=== PATIENT | female | born 1940 | race Caucasian/White ===

== ENCOUNTER 2018-10-21 12:54 | Observation (INO) ==
[2018-10-21 13:06] VITALS: BMI 20.5
[2018-10-21 13:15] LABS: BASOPHILS # (AUTO) 0.1 X10^3/uL (0.0-0.1); BASOPHILS % (AUTO) 1.4 % (0.2-1.0); EOSINOPHILS # (AUTO) 0.3 x10^3/uL (0.0-0.2); EOSINOPHILS % (AUTO) 4.8 % (0.9-2.9); HEMATOCRIT 35.8 % (36.0-47.0); LYMPHOCYTES # (AUTO) 3.3 X10^3/uL (1.3-2.9); LYMPHOCYTES % (AUTO) 53.3 % (21.0-51.0); MEAN CORPUSCULAR HEMOGLOBIN 30.2 pg (27.0-34.0); MEAN CORPUSCULAR HGB CONC 33.5 g/dL (33.0-35.0); MEAN PLATELET VOLUME 9.7 fL (7.4-11.0); MONOCYTES # (AUTO) 0.5 x10^3/uL (0.3-0.8); MONOCYTES % (AUTO) 7.8 % (0.0-13.0); NEUTROPHILS % (AUTO) 32.7 % (42.0-75.0); PLATELET COUNT 307 X10^3/uL (150.0-450.0); RED BLOOD COUNT 3.98 X10^6/uL (3.5-5.4); RED CELL DISTRIBUTION WIDTH 13.7 % (11.6-16.5); WHITE BLOOD COUNT 6.2 X10^3/uL (3.6-10.0)
[2018-10-21 13:35] LABS: BLOOD UREA NITROGEN 28 mg/dL (7-18); CALCIUM 9.3 mg/dL (8.5-10.1); CARBON DIOXIDE 26.1 mmol/L (21-32); CHLORIDE 104 mmol/L (98-107); COR NA(FOR HYPERGLY) 141 mmol/L (136-145); CREATININE 1.37 mg/dL (0.55-1.02); SODIUM 141 mmol/L (136-145); TROPONIN I < 0.02 ng/mL (0-1.5); eGFR NON BLACK RACES 40 (>60)
[2018-10-21 13:36] LABS: ALANINE AMINOTRANSFERASE 31 Units/L (12-78); ALBUMIN 3.9 g/dL (3.4-5.0); ALKALINE PHOSPHATASE 40 Units/L (46-116); ASPARTATE AMINO TRANSFERASE 38 Units/L (15-37); CREATINE KINASE 98 Units/L (26-192); CREATINE KINASE MB < 1.0 ng/mL (0-4.0); TOTAL PROTEIN 7.5 g/dL (6.4-8.2)
--- NOTE | 2018-10-21 13:39 | RAD ---
History: Syncope and shortness of breath Study: Portable AP chest Comparison: July 14, 2016 Findings: The lungs are grossly clear and the heart size is normal. There is no edema or effusion or congestion. Impression: No evidence for acute cardiopulmonary disease Reported By:
--- NOTE | 2018-10-21 13:41 | CT ---
CT HEAD WITHOUT CONTRAST CLINICAL HISTORY: 78-year-old female with syncopal episode. COMPARISON: CT head 07/14/2016. TECHNIQUE: Multiple, non-contrasted axial CT images were obtained from the skull base to the cranial vertex. Coronal and sagittal reformats were performed. FINDINGS: There are no abnormal intra- or extra-axial fluid collections, midline shift, or mass effect. Guerra-white differentiation is normal. Global cortical involutional changes are present that are advanced for the patient's stated age. The ventricular system is enlarged but commensurate with the degree of sulcal prominence. Severe periventricular and supraventricular white matter hypodensity is present that is nonspecific in appearance, but most likely to represent microvascular ischemic changes. Atherosclerotic vascular calcification is present within the carotid siphons and distal vertebral arteries. Trace mucosal thickening imaged maxillary sinuses. The remaining imaged paranasal sinuses, mastoid air cells, and tympanic spaces are clear. IMPRESSION: 1. No definite evidence of an acute intracranial process. If clinical concern persists for acute stroke and it would alter patient management, consider MRI/MRA brain. 2. Severe microvascular white matter ischemic changes, with associated volume loss. Reported By:
--- NOTE | 2018-10-21 13:52 | DR.DIZZY ---
HPI Time seen Time Seen by Provider: 10/21/18 13:16 Complaint Chief Complaint:: PATIENT WAS AT THE POST OFFICE AND CAME IN FROM THE HEAT AND FELT LIKE SHE WAS GOING PASS OUT BUT NEVER ANY LOC. PATIENT STATED THAT SHE JUST THINKS SHE GOT TO HOT FROM BEING OUTSIDE. SHE ALSO STATED THAT HER HEAD FEELS F UNNY. 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 Family History History of Family Medical Conditions: No Social History Does patient currently use any type of tobacco product: No Have you used tobacco products in the last 12 months: No Type of Tobacco Use: None Does any household member use tobacco: No Alcohol Use: None Do you use any recreational Drugs:: No Lives With: Spouse Lives Where: Home infectious screening In the last 2 months have you had wt loss of >10#?: NO Have you had fever, night sweats or hemotysis?: No Have you traveled outside the country in the last 6 months?: No Isolation: Standard PE Vital Signs Vitals: Temperature 98.2 F Pulse Rate [Left Brachial] 61 Pulse Rate 74 Respiratory Rate 20 Blood Pressure [Right Arm] 108/54 Blood Pressure [Left Arm] 103/51 Blood Pressure 94/61 O2 Sat by Pulse Oximetry 99 ROR Labs Reviewed Result Diagrams: 10/21/18 12:57 10/21/18 12:57 Laboratory: WBC 6.2 X10^3/uL (3.6-10.0) 10/21/18 12:57 RBC 3.98 X10^6/uL (3.5-5.4) 10/21/18 12:57 Hgb 12.0 g/dL (12.0-16.0) 10/21/18 12:57 Hct 35.8 % (36.0-47.0) L 10/21/18 12:57 MCV 90.0 fL (80.0-100.0) 10/21/18 12:57 MCH 30.2 pg (27.0-34.0) 10/21/18 12:57 MCHC 33.5 g/dL (33.0-35.0) 10/21/18 12:57 RDW 13.7 % (11.6-16.5) 10/21/18 12:57 Plt Count 307 X10^3/uL (150.0-450.0) 10/21/18 12:57 MPV 9.7 fL (7.4-11.0) 10/21/18 12:57 Neut % (Auto) 32.7 % (42.0-75.0) L 10/21/18 12:57 Lymph % (Auto) 53.3 % (21.0-51.0) H 10/21/18 12:57 Hanson % (Auto) 7.8 % (0.0-13.0) 10/21/18 12:57 Eos % (Auto) 4.8 % (0.9-2.9) H 10/21/18 12:57 Baso % (Auto) 1.4 % (0.2-1.0) H 10/21/18 12:57 Neut # (Auto) 2.0 x10^3/uL (2.2-4.8) L 10/21/18 12:57 Lymph # (Auto) 3.3 X10^3/uL (1.3-2.9) H 10/21/18 12:57 Hanson # (Auto) 0.5 x10^3/uL (0.3-0.8) 10/21/18 12:57 Eos # (Auto) 0.3 x10^3/uL (0.0-0.2) H 10/21/18 12:57 Baso # (Auto) 0.1 X10^3/uL (0.0-0.1) 10/21/18 12:57 Absolute Nucleated RBC 0.1 /100WBC 10/21/18 12:57 Sodium 141 mmol/L (136-145) 10/21/18 12:57 Corrected Sodium 141 mmol/L (136-145) 10/21/18 12:57 Potassium 4.5 mmol/L (3.5-5.1) 10/21/18 12:57 Chloride 104 mmol/L (98-107) 10/21/18 12:57 Carbon Dioxide 26.1 mmol/L (21-32) 10/21/18 12:57 BUN 28 mg/dL (7-18) H 10/21/18 12:57 Creatinine 1.37 mg/dL (0.55-1.02) H 10/21/18 12:57 Est GFR (MDRD) Af Amer 48 (>60) L 10/21/18 12:57 Est GFR (MDRD) Non-Af 40 (>60) L 10/21/18 12:57 Glucose 117 mg/dL (65-99) H 10/21/18 12:57 Calcium 9.3 mg/dL (8.5-10.1) 10/21/18 12:57 Corrected Calcium TNP 10/21/18 12:57 Total Bilirubin 0.30 mg/dL (0.2-1.0) 10/21/18 12:57 AST 38 Units/L (15-37) H 10/21/18 12:57 ALT 31 Units/L (12-78) 10/21/18 12:57 Alkaline Phosphatase 40 Units/L (46-116) L 10/21/18 12:57 Creatine Kinase 98 Units/L (26-192) 10/21/18 12:57 CK-MB (CK-2) < 1.0 ng/mL (0-4.0) 10/21/18 12:57 CK/CKMB % Calc 1.0 % (<4) 10/21/18 12:57 Troponin I < 0.02 ng/mL (0-1.5) 10/21/18 12:57 Total Protein 7.5 g/dL (6.4-8.2) 10/21/18 12:57 Albumin 3.9 g/dL (3.4-5.0) 10/21/18 12:57 Globulin 3.6 g/dL (2.5-4.5) 10/21/18 12:57 Albumin/Globulin Ratio 1.1 Ratio (1.1-2.1) 10/21/18 12:57
[2018-10-21] MEDS ORDERED: ANTIVERT TAB 25 MG PO PRN (16:23)
[2018-10-21] MEDS: NS 1000 ML 1,000 ML IV SCH (17:15)
[2018-10-21 18:32] LABS: BILIRUBIN,URINE NEGATIVE (NEGATIVE); BLOOD/HEMOGLOBIN,URINE 1+ (NEGATIVE); GLUCOSE, URINE NEGATIVE (NEGATIVE); KETONES,URINE NEGATIVE (NEGATIVE); LEUKOCYTE ESTERASE ,URINE NEGATIVE (NEGATIVE); NITRITES,URINE NEGATIVE (NEGATIVE); PH,URINE 6.5 (5.0 - 8.0); PROTEIN,URINE NEGATIVE (NEGATIVE); UROBILINOGEN,URINE NORMAL (NORMAL)
[2018-10-21 18:40] LABS: APPEARANCE,URINE CLEAR (CLEAR); COLOR,URINE YELLOW (YELLOW); RBC,URINE 0-2 /HPF (NONE SEEN)
[2018-10-21 18:41] LABS: BACTERIA,URINE NEGATIVE /HPF (NEGATIVE); SQUAMOUS EPITHELIAL CELL,UR NEGATIVE /HPF (NEGATIVE)
[2018-10-21] MEDS ORDERED: COUMADIN TAB 5 MG PO SCH (21:00)
[2018-10-21] MEDS ORDERED: MESTINON 60MG TAB PO SCH (21:00)
[2018-10-21] MEDS: TRICOR TAB 160 MG PO SCH (21:36)
[2018-10-21] MEDS ORDERED: PYRIDOSTIGMINE BROMIDE PO SCH (22:00)
[2018-10-22] LABS: CREATINE KINASE 99 Units/L (26-192); CREATINE KINASE MB < 1.0 ng/mL (0-4.0); TROPONIN I < 0.02 ng/mL (0-1.5)
[2018-10-22 05:09] LABS: BASOPHILS # (AUTO) 0.1 X10^3/uL (0.0-0.1); BASOPHILS % (AUTO) 1.4 % (0.2-1.0); EOSINOPHILS # (AUTO) 0.4 x10^3/uL (0.0-0.2); EOSINOPHILS % (AUTO) 7.2 % (0.9-2.9); HEMATOCRIT 32.4 % (36.0-47.0); HEMOGLOBIN 10.9 g/dL (12.0-16.0); LYMPHOCYTES % (AUTO) 40.4 % (21.0-51.0); MEAN CORPUSCULAR HEMOGLOBIN 30.8 pg (27.0-34.0); MEAN CORPUSCULAR HGB CONC 33.7 g/dL (33.0-35.0); MEAN CORPUSCULAR VOLUME 91.6 fL (80.0-100.0); MEAN PLATELET VOLUME 10.2 fL (7.4-11.0); MONOCYTES # (AUTO) 0.6 x10^3/uL (0.3-0.8); MONOCYTES % (AUTO) 11.3 % (0.0-13.0); NEUTROPHILS % (AUTO) 39.7 % (42.0-75.0); PLATELET COUNT 229 X10^3/uL (150.0-450.0); RED BLOOD COUNT 3.54 X10^6/uL (3.5-5.4); RED CELL DISTRIBUTION WIDTH 13.7 % (11.6-16.5); WHITE BLOOD COUNT 4.9 X10^3/uL (3.6-10.0)
[2018-10-22 05:15] LABS: ALANINE AMINOTRANSFERASE 24 Units/L (12-78); ALBUMIN 3.2 g/dL (3.4-5.0); ALKALINE PHOSPHATASE 31 Units/L (46-116); ASPARTATE AMINO TRANSFERASE 30 Units/L (15-37); BLOOD UREA NITROGEN 23 mg/dL (7-18); CALCIUM 8.7 mg/dL (8.5-10.1); CARBON DIOXIDE 24.3 mmol/L (21-32); CHLORIDE 108 mmol/L (98-107); COR CA(FOR HYPOALB) 9.3 mg/dL (8.5-10.1); CREATININE 1.06 mg/dL (0.55-1.02); MAGNESIUM 1.7 mg/dL (1.7-2.9); SODIUM 143 mmol/L (136-145); TOTAL PROTEIN 6.3 g/dL (6.4-8.2); eGFR NON BLACK RACES 53 (>60)
[2018-10-22 05:23] LABS: CKMB % 1.4 % (<4); CREATINE KINASE 74 Units/L (26-192); CREATINE KINASE MB < 1.0 ng/mL (0-4.0); TROPONIN I < 0.02 ng/mL (0-1.5)
[2018-10-22] MEDS: ZOCOR TAB 40 MG PO SCH (08:21)
[2018-10-22] MEDS: ARICEPT TAB 10 MG PO SCH (08:21)
[2018-10-22] MEDS: OXYBUTYNIN CHLORIDE ER PO SCH (08:22)
[2018-10-22] MEDS: NAMENDA TAB 10 MG PO SCH (08:22)
[2018-10-22] MEDS: PROTONIX TAB 40 MG PO SCH (08:23)
[2018-10-22] MEDS ORDERED: PYRIDOSTIGMINE BROMIDE 180 MG PO SCH (09:00)
[2018-10-22] MEDS ORDERED: MESTINON 60MG TAB PO SCH (09:00)
[2018-10-22] MEDS: ELIQUIS PO SCH ×2 (10:10→20:46)
[2018-10-22] MEDS: NS 1000 ML 1,000 ML IV SCH ×2 (13:20→20:49)
[2018-10-22] MEDS ORDERED: FIORICET TAB PO PRN (14:59)
[2018-10-22] MEDS: PATIENT'S HOME MEDICATION PO SCH ×2 (15:24→23:52)
--- NOTE | 2018-10-22 18:28 | DR.H&P ---
H&P - History & Physical for Day of: H&P Date: 10/21/18 - Chief Complaint Chief Complaint: WEAKNESS, NEAR SYNCOPE - History of Present Illness History of Present Illness: IS A 78 YEAR OLD PATIENT OF OURS WHO PRESENTED TO THE ER AFTER A NEAR SYNCOPAL EPISODE. WITNESSES STATED THAT PATIENT CAME INTO THE POST OFFICE FROM THE HEAT AND FELT LIKE SHE WAS GOINT TO PASS OUT. SHE APPARENTLY NEVER LOST CONSCIOUSNESS. ON ARRIVAL, VITALS WERE 9 8.2-74-20-99%-94/61. LABS WERE OBTAINED. ABNORMAL LAB VALUES INCLUDE THE FOLLOWING: HCT 35.8, INR 5.28, BUN 28, CREATININE 1.37, GLUCOSE 117, AST 38, ALK PHOS 40. CARDIAC ENZYMES WITHIN NORMAL LIMITS. EKG WAS OBTAINED AND REVEALED: SINUS RHYTHM WITH HR 78. BRAIN CT WAS OBTAINED AND REVEALED: No definite evidence of an acute intracranial process. If clinical concern persists for acute stroke and it would alter patient management, consider MRI/MRA brain. Severe microvascular white matter ischemic changes, with associated volume loss. CHEST XRAY WAS OBTAINED AND REVEALED: No evidence for acute cardiopulmonary disease. SHE WAS ADMITTED TO THE HOSPITAL FOR FURTHER EVALUATION AND TREATMENT OF NEAR SYNCOPE AND WEAKNESS. SHE WAS STARTED ON NORMAL SALINE AT 50ML/HR. WE PLAN TO FOLLOW UP WITH AM LABS AND CONTINUE TO MONITOR. - Past Medical History Past Medical History: Dementia, Arthritis - Past Surgical History Surgical History: KILN TESTER Surgery - Social History Does patient currently use any type of tobacco product: No Have you used tobacco products in the last 12 months: No Type of Tobacco Use: None Does any household member use tobacco: No Alcohol Use: None Drug Use: None - Medications Home Medications: butorphanol [From Stadol] Allergy (Verified 10/21/18 19:41) CONTINUE taking the following medications donepezil 20 mg PO HS 10/21/18 [History] fluticasone propionate 1 spray INTRANASAL DAILY PRN 10/21/18 [History] meclizine 25 mg PO PRN PRN 10/21/18 [History] memantine 10 mg PO BID 10/21/18 [History] oxybutynin chloride 15 mg PO DAILY 10/21/18 [History] pantoprazole 40 mg PO DAILY 10/21/18 [History] pyridostigmine bromide 60 mg PO TID 10/21/18 [History] pyridostigmine bromide 180 mg PO HS 10/21/18 [History] simvastatin 40 mg PO HS 10/21/18 [History] warfarin 5 mg PO HS 10/21/18 [History] [id number] [Fioricet] 1 tab PO Q4-6H PRN 10/22/18 [History] - Review of Systems Constitutional: Weakness Eyes: No Symptoms Reported ENT: No Symptoms Reported Respiratory: No Symptoms Reported Cardiovascular: No Symptoms Reported Gastrointestinal: No Symptoms Reported Genitourinary: No Symptoms Reported Musculoskeletal: No Symptoms Reported Skin: No Symptoms Reported Neurological: Weakness - Physical Exam Vital Signs: Temperature 97.7 F Pulse Rate [Left Brachial] 73 Pulse Rate 74 Respiratory Rate 20 Blood Pressure [Right Arm] 112/62 Blood Pressure [Left Arm] 109/53 Blood Pressure 94/61 O2 Sat by Pulse Oximetry 96 Oriented: Normal Eyes: Normal Ear: Normal Nose: Normal Throat: Normal Respiratory: Diminished Throughout Cardiovascular: Normal. negative: S3, S4, Murmur : Normal Auscultation: Bowel Sounds: Normal Palpation: Normal Tenderness: Normal Skin: Normal Musculoskeletal: Normal Psychiatric: Normal Mood Description: Calm Affect: Normal Speech Pattern: Clear - Assessment/Plan (1) Near syncope Status: Ruled-out (2) Generalized weakness Status: Acute - Allergies Allergies/Adverse Reactions: Allergies Allergy/AdvReac Type Severity Reaction Status Date / Time butorphanol [From Stadol] Allergy Verified 10/21/18 19:41
[2018-10-22] MEDS: TRICOR TAB 160 MG PO SCH (20:46)
[2018-10-22] MEDS ORDERED: PATIENT'S HOME MEDICATION PO SCH (21:00)
[2018-10-23] MEDS: PATIENT'S HOME MEDICATION PO SCH (05:16)
[2018-10-23 05:29] LABS: BASOPHILS % (AUTO) 0.9 % (0.2-1.0); EOSINOPHILS # (AUTO) 0.4 x10^3/uL (0.0-0.2); EOSINOPHILS % (AUTO) 7.4 % (0.9-2.9); HEMOGLOBIN 11.2 g/dL (12.0-16.0); LYMPHOCYTES # (AUTO) 1.8 X10^3/uL (1.3-2.9); LYMPHOCYTES % (AUTO) 38.2 % (21.0-51.0); MEAN CORPUSCULAR HGB CONC 33.8 g/dL (33.0-35.0); MEAN CORPUSCULAR VOLUME 91.7 fL (80.0-100.0); MEAN PLATELET VOLUME 10.5 fL (7.4-11.0); MONOCYTES # (AUTO) 0.5 x10^3/uL (0.3-0.8); MONOCYTES % (AUTO) 10.6 % (0.0-13.0); NEUTROPHILS # (AUTO) 2.1 x10^3/uL (2.2-4.8); NEUTROPHILS % (AUTO) 42.9 % (42.0-75.0); PLATELET COUNT 217 X10^3/uL (150.0-450.0); RED BLOOD COUNT 3.59 X10^6/uL (3.5-5.4); RED CELL DISTRIBUTION WIDTH 13.9 % (11.6-16.5); WHITE BLOOD COUNT 4.8 X10^3/uL (3.6-10.0)
[2018-10-23 05:41] LABS: ALANINE AMINOTRANSFERASE 23 Units/L (12-78); ALBUMIN 3.2 g/dL (3.4-5.0); ALKALINE PHOSPHATASE 31 Units/L (46-116); ASPARTATE AMINO TRANSFERASE 29 Units/L (15-37); BLOOD UREA NITROGEN 26 mg/dL (7-18); CALCIUM 8.8 mg/dL (8.5-10.1); CARBON DIOXIDE 24.9 mmol/L (21-32); CHLORIDE 109 mmol/L (98-107); COR CA(FOR HYPOALB) 9.4 mg/dL (8.5-10.1); CREATININE 1.06 mg/dL (0.55-1.02); SODIUM 143 mmol/L (136-145); TOTAL PROTEIN 6.3 g/dL (6.4-8.2); eGFR NON BLACK RACES 53 (>60)
[2018-10-23] MEDS: OXYBUTYNIN CHLORIDE ER PO SCH (08:33)
[2018-10-23] MEDS: NAMENDA TAB 10 MG PO SCH (08:33)
[2018-10-23] MEDS: ARICEPT TAB 10 MG PO SCH (08:33)
[2018-10-23] MEDS: ZOCOR TAB 40 MG PO SCH ×2 (08:34→08:53)
[2018-10-23] MEDS: PROTONIX TAB 40 MG PO SCH (08:34)
[2018-10-23] MEDS: NS 1000 ML 1,000 ML IV SCH (08:34)
[2018-10-23 08:47] VITALS: BP 100/46
== END 2018-10-23 10:15 | disposition home or self-care (01) ==
LOC: MED/SURG 12:54 → ER 12:54 → MED/SURG 16:15
PROVIDERS: ADMIT Internal Medicine; ATTEND Internal Medicine
DX: R53.1 Weakness; R79.1 Abnormal coagulation profile; R94.4 Abnormal results of kidney function studies; R55 Syncope and collapse; Z79.01 Long term (current) use of anticoagulants
CPT/HCPCS: 36415; 70450; 71010; 71045; 80053; 81001; 82550; 82553; 83735; 84484; 85025; 85610; 85730; 93005; 94760; 96365; 96367; 99284; A4222; G0378; J7030

== ENCOUNTER 2019-05-07 12:10 | Inpatient (IN) ==
[2019-05-07] MEDS ORDERED: NUBAIN INJ 10 ONE (13:06)
[2019-05-07] MEDS ORDERED: NUBAIN INJ 10 IVP ONE (13:15)
--- NOTE | 2019-05-07 13:15 | ED.ABDFE ---
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 Family History History of Family Medical Conditions: Yes Social History Does patient currently use any type of tobacco product: No Have you used tobacco products in the last 12 months: No Type of Tobacco Use: None Does any household member use tobacco: No Alcohol Use: None Do you use any recreational Drugs:: No Lives With: Family Lives Where: Home infectious screening In the last 2 months have you had wt loss of >10#?: YES Have you had fever, night sweats or hemotysis?: No Have you traveled outside the country in the last 6 months?: No Isolation: Standard PE Vital Signs Vitals: Temperature 97.2 F Pulse Rate 59 Respiratory Rate 20 Blood Pressure [Right Arm] 112/62 Blood Pressure [Left Arm] 134/61 Blood Pressure 142/80 O2 Sat by Pulse Oximetry 100 ROR Labs Reviewed Result Diagrams: 05/07/19 13:00 05/07/19 13:00 Laboratory: WBC 9.6 X10^3/uL (3.6-10.0) 05/07/19 13:00 RBC 4.63 X10^6/uL (3.5-5.4) 05/07/19 13:00 Hgb 14.4 g/dL (12.0-16.0) 05/07/19 13:00 Hct 42.3 % (36.0-47.0) 05/07/19 13:00 MCV 91.3 fL (80.0-100.0) 05/07/19 13:00 MCH 31.0 pg (27.0-34.0) 05/07/19 13:00 MCHC 33.9 g/dL (33.0-35.0) 05/07/19 13:00 RDW 13.5 % (11.6-16.5) 05/07/19 13:00 Plt Count 224 X10^3/uL (150.0-450.0) 05/07/19 13:00 MPV 11.1 fL (7.4-11.0) H 05/07/19 13:00 Neut % (Auto) 54.4 % (42.0-75.0) 05/07/19 13:00 Lymph % (Auto) 36.2 % (21.0-51.0) 05/07/19 13:00 Armstrong % (Auto) 8.3 % (0.0-13.0) 05/07/19 13:00 Eos % (Auto) 0.3 % (0.9-2.9) L 05/07/19 13:00 Baso % (Auto) 0.8 % (0.2-1.0) 05/07/19 13:00 Neut # (Auto) 5.2 x10^3/uL (2.2-4.8) H 05/07/19 13:00 Lymph # (Auto) 3.5 X10^3/uL (1.3-2.9) H 05/07/19 13:00 Armstrong # (Auto) 0.8 x10^3/uL (0.3-0.8) 05/07/19 13:00 Eos # (Auto) 0.0 x10^3/uL (0.0-0.2) 05/07/19 13:00 Baso # (Auto) 0.1 X10^3/uL (0.0-0.1) 05/07/19 13:00 Absolute Nucleated RBC 0.1 /100WBC 05/07/19 13:00 Sodium 138 mmol/L (136-145) 05/07/19 13:00 Sodium Cancelled 05/07/19 13:00 Corrected Sodium Cancelled 05/07/19 13:00 Corrected Sodium TNP 05/07/19 13:00 Potassium 4.3 mmol/L (3.5-5.1) 05/07/19 13:00 Potassium Cancelled 05/07/19 13:00 Chloride 99 mmol/L (98-107) 05/07/19 13:00 Chloride Cancelled 05/07/19 13:00 Carbon Dioxide 31.2 mmol/L (21-32) 05/07/19 13:00 Carbon Dioxide Cancelled 05/07/19 13:00 BUN 24 mg/dL (7-18) H 05/07/19 13:00 BUN Cancelled 05/07/19 13:00 Creatinine 1.03 mg/dL (0.55-1.02) H 05/07/19 13:00 Creatinine Cancelled 05/07/19 13:00 Est GFR (MDRD) Af Amer > 60 (>60) 05/07/19 13:00 Est GFR (MDRD) Af Amer Cancelled 05/07/19 13:00 Est GFR (MDRD) Non-Af 55 (>60) L 05/07/19 13:00 Est GFR (MDRD) Non-Af Cancelled 05/07/19 13:00 Glucose 105 mg/dL (65-99) H 05/07/19 13:00 Glucose Cancelled 05/07/19 13:00 Calcium 9.9 mg/dL (8.5-10.1) 05/07/19 13:00 Calcium Cancelled 05/07/19 13:00 Corrected Calcium Cancelled 05/07/19 13:00 Corrected Calcium TNP 05/07/19 13:00 Total Bilirubin 0.20 mg/dL (0.2-1.0) 05/07/19 13:00 Total Bilirubin Cancelled 05/07/19 13:00 AST 27 Units/L (15-37) 05/07/19 13:00 AST Cancelled 05/07/19 13:00 ALT 30 Units/L (12-78) 05/07/19 13:00 ALT Cancelled 05/07/19 13:00 Alkaline Phosphatase 85 Units/L (46-116) 05/07/19 13:00 Alkaline Phosphatase Cancelled 05/07/19 13:00 Creatine Kinase 54 Units/L (26-192) 05/07/19 13:00 CK-MB (CK-2) < 1.0 ng/mL (0-4.0) 05/07/19 13:00 CK/CKMB % Calc 1.9 % (<4) 05/07/19 13:00 Troponin I < 0.02 ng/mL (0-1.5) 05/07/19 13:00 Total Protein 8.5 g/dL (6.4-8.2) H 05/07/19 13:00 Total Protein Cancelled 05/07/19 13:00 Albumin 4.2 g/dL (3.4-5.0) 05/07/19 13:00 Albumin Cancelled 05/07/19 13:00 Globulin 4.3 g/dL (2.5-4.5) 05/07/19 13:00 Globulin Cancelled 05/07/19 13:00 Albumin/Globulin Ratio 1.0 Ratio (1.1-2.1) L 05/07/19 13:00 Albumin/Globulin Ratio Cancelled 05/07/19 13:00 Amylase 165 Units/L (25-115) H 05/07/19 13:00 Amylase Cancelled 05/07/19 13:00 Lipase 790 Units/L (73-393) H 05/07/19 13:00 Lipase Cancelled 05/07/19 13:00 Specimen Type Clean catch urine 05/07/19 15:35 Urine Color Yellow (YELLOW) 05/07/19 15:35 Urine Appearance Clear (CLEAR) 05/07/19 15:35 Urine pH 7.0 (5.0 - 8.0) 05/07/19 15:35 Ur Specific Wagner 1.010 (1.000-1.030) 05/07/19 15:35 Urine Protein 2+ (NEGATIVE) 05/07/19 15:35 Urine Glucose (UA) Negative (NEGATIVE) 05/07/19 15:35 Urine Ketones Negative (NEGATIVE) 05/07/19 15:35 Urine Occult Blood Negative (NEGATIVE) 05/07/19 15:35 Urine Nitrite Negative (NEGATIVE) 05/07/19 15:35 Urine Bilirubin Negative (NEGATIVE) 05/07/19 15:35 Urine Urobilinogen Normal (NORMAL) 05/07/19 15:35 Ur Leukocyte Esterase 1+ (NEGATIVE) 05/07/19 15:35 Urine RBC 0-2 /HPF (0-3) 05/07/19 15:35 Urine WBC 5-10 /HPF (0-5) A 05/07/19 15:35 Ur Squamous Epith Cells Rare /HPF (NEGATIVE) 05/07/19 15:35 Urine Bacteria Negative /HPF (NEGATIVE) 05/07/19 15:35 Ur Culture Indicated? Yes/culture set up 05/07/19 15:35 Opioid Opioid Risk Tool Age (José Miguel box if 16-45): No History of Preadolescent Sexual Abuse: No Total: 0 Total Score Risk Category: Low Risk Copyright: Jared KELLEY predicting aberrant behaviors Instructions Forms: Excuse From Work Patient Portal
[2019-05-07 13:26] LABS: BASOPHILS # (AUTO) 0.1 X10^3/uL (0.0-0.1); BASOPHILS % (AUTO) 0.8 % (0.2-1.0); EOSINOPHILS % (AUTO) 0.3 % (0.9-2.9); HEMATOCRIT 42.3 % (36.0-47.0); HEMOGLOBIN 14.4 g/dL (12.0-16.0); LYMPHOCYTES # (AUTO) 3.5 X10^3/uL (1.3-2.9); LYMPHOCYTES % (AUTO) 36.2 % (21.0-51.0); MEAN CORPUSCULAR HGB CONC 33.9 g/dL (33.0-35.0); MEAN CORPUSCULAR VOLUME 91.3 fL (80.0-100.0); MEAN PLATELET VOLUME 11.1 fL (7.4-11.0); MONOCYTES # (AUTO) 0.8 x10^3/uL (0.3-0.8); MONOCYTES % (AUTO) 8.3 % (0.0-13.0); NEUTROPHILS # (AUTO) 5.2 x10^3/uL (2.2-4.8); NEUTROPHILS % (AUTO) 54.4 % (42.0-75.0); PLATELET COUNT 224 X10^3/uL (150.0-450.0); RED BLOOD COUNT 4.63 X10^6/uL (3.5-5.4); RED CELL DISTRIBUTION WIDTH 13.5 % (11.6-16.5); WHITE BLOOD COUNT 9.6 X10^3/uL (3.6-10.0)
[2019-05-07 13:31] LABS: ALANINE AMINOTRANSFERASE 30 Units/L (12-78); ALBUMIN 4.2 g/dL (3.4-5.0); ALKALINE PHOSPHATASE 85 Units/L (46-116); AMYLASE 165 Units/L (25-115); ASPARTATE AMINO TRANSFERASE 27 Units/L (15-37); BLOOD UREA NITROGEN 24 mg/dL (7-18); CALCIUM 9.9 mg/dL (8.5-10.1); CARBON DIOXIDE 31.2 mmol/L (21-32); CHLORIDE 99 mmol/L (98-107); CREATININE 1.03 mg/dL (0.55-1.02); LIPASE 790 Units/L (73-393); SODIUM 138 mmol/L (136-145); TOTAL PROTEIN 8.5 g/dL (6.4-8.2); eGFR NON BLACK RACES 55 (>60)
[2019-05-07 14:27] LABS: CKMB % 1.9 % (<4); CREATINE KINASE 54 Units/L (26-192); CREATINE KINASE MB < 1.0 ng/mL (0-4.0); TROPONIN I < 0.02 ng/mL (0-1.5)
--- NOTE | 2019-05-07 14:54 | CT ---
HISTORY: Altered mental status Study: CT brain without contrast Comparison: 10/21/2018 Technique: Multiple axial images of the brain were obtained from the skull base to the vertex without administration of IV contrast.Dose reduction techniques including Automated Exposure Control (AEC) and adjustment of mA and kV were utlized. Findings: No visible intracranial hemorrhage or overt acute infarct. Patchy white matter disease is nonspecific but compatible with small vessel ischemic change and appear similar to prior. No extra-axial fluid collections are seen. No ventriculomegaly or midline shift. No visible mass or mass effect. Included paranasal sinuses and mastoid air cells are aerated. Orbital contents appear intact. Skull base and calvarium appear intact. IMPRESSION: 1. No acute intracranial process identified. Reported By:
--- NOTE | 2019-05-07 15:23 | CT ---
HISTORY: Abdominal pain Study: CT abdomen and pelvis without contrast Comparison: Chest CT 08/28/2015 Technique: Multiple axial images of the abdomen and pelvis were obtained from the lung bases to the pubic symphysis without the administration of IV contrast. Dose reduction techniques including Automated Exposure Control (AEC) and adjustment of mA and kV were utlized. Findings: Lung bases show mild atelectasis. 5 cm right renal cyst again seen. Unremarkable appendix. Wall thickening versus underdistention of the sigmoid colon and rectum with sigmoid diverticulosis without overt diverticulitis. Scattered atherosclerosis. Except as described above, the following organs/tissues were reviewed and found to be without significant abnormality within the limits of the exam: Lung bases, liver, gallbladder, pancreas, spleen, kidneys and ureters, stomach, small and large bowel, peritoneal space, urinary bladder, reproductive organs, major vessels, lymph nodes, bones, regional soft tissues. IMPRESSION: 1. Questionable wall thickening of rectum and sigmoid colon versus underdistention. Findings could reflect proctitis and colitis. No other acute finding is seen. Reported By:
[2019-05-07 15:59] LABS: BILIRUBIN,URINE NEGATIVE (NEGATIVE); BLOOD/HEMOGLOBIN,URINE NEGATIVE (NEGATIVE); GLUCOSE, URINE NEGATIVE (NEGATIVE); KETONES,URINE NEGATIVE (NEGATIVE); LEUKOCYTE ESTERASE ,URINE 1+ (NEGATIVE); NITRITES,URINE NEGATIVE (NEGATIVE); PROTEIN,URINE 2+ (NEGATIVE); UROBILINOGEN,URINE NORMAL (NORMAL)
[2019-05-07 16:09] LABS: APPEARANCE,URINE CLEAR (CLEAR); BACTERIA,URINE NEGATIVE /HPF (NEGATIVE); COLOR,URINE YELLOW (YELLOW); RBC,URINE 0-2 /HPF (0-3); SQUAMOUS EPITHELIAL CELL,UR RARE /HPF (NEGATIVE)
[2019-05-07] MEDS ORDERED: ZOFRAN INJ 4 MG VIAL IVP PRN (18:20)
[2019-05-07] MEDS ORDERED: PEPCID 20 MG IV PREMIX* 20 MG/50 ML BAG IV PRN (18:20)
[2019-05-07] MEDS: NUBAIN INJ 10 IVP PRN (20:16)
[2019-05-07] MEDS: NS 1000 ML 1,000 ML IV SCH (20:22)
[2019-05-07] MEDS: PYRIDOSTIGMINE BROMIDE 180 MG PO SCH (20:29)
[2019-05-07 20:41] VITALS: BMI 19.2
[2019-05-08] MEDS: NS 1000 ML 1,000 ML IV SCH ×2 (04:27→17:25)
[2019-05-08 05:05] LABS: BASOPHILS # (AUTO) 0.1 X10^3/uL (0.0-0.1); BASOPHILS % (AUTO) 0.6 % (0.2-1.0); EOSINOPHILS % (AUTO) 0.5 % (0.9-2.9); HEMATOCRIT 38.3 % (36.0-47.0); HEMOGLOBIN 12.9 g/dL (12.0-16.0); LYMPHOCYTES # (AUTO) 2.3 X10^3/uL (1.3-2.9); MEAN CORPUSCULAR HGB CONC 33.7 g/dL (33.0-35.0); MEAN PLATELET VOLUME 10.9 fL (7.4-11.0); MONOCYTES # (AUTO) 0.7 x10^3/uL (0.3-0.8); MONOCYTES % (AUTO) 7.9 % (0.0-13.0); NEUTROPHILS # (AUTO) 5.6 x10^3/uL (2.2-4.8); PLATELET COUNT 205 X10^3/uL (150.0-450.0); RED BLOOD COUNT 4.16 X10^6/uL (3.5-5.4); RED CELL DISTRIBUTION WIDTH 13.5 % (11.6-16.5); WHITE BLOOD COUNT 8.7 X10^3/uL (3.6-10.0)
[2019-05-08 05:27] LABS: ALANINE AMINOTRANSFERASE 27 Units/L (12-78); ALBUMIN 3.4 g/dL (3.4-5.0); ALKALINE PHOSPHATASE 73 Units/L (46-116); AMYLASE 227 Units/L (25-115); ASPARTATE AMINO TRANSFERASE 21 Units/L (15-37); BLOOD UREA NITROGEN 17 mg/dL (7-18); CALCIUM 9.2 mg/dL (8.5-10.1); CARBON DIOXIDE 28.8 mmol/L (21-32); CHLORIDE 103 mmol/L (98-107); CREATININE 0.88 mg/dL (0.55-1.02); LIPASE 1302 Units/L (73-393); SODIUM 138 mmol/L (136-145); eGFR NON BLACK RACES > 60 (>60)
[2019-05-08] MEDS: MESTINON 60MG TAB PO SCH ×3 (06:08→17:00)
[2019-05-08] MEDS: NUBAIN INJ 10 IVP PRN ×2 (08:06→20:08)
[2019-05-08] MEDS: ELIQUIS PO SCH (08:12)
[2019-05-08] MEDS: MACROBID CAP 100 MG EXT REL PO SCH ×2 (14:01→20:08)
[2019-05-08] MEDS: PYRIDOSTIGMINE BROMIDE 180 MG PO SCH (21:01)
[2019-05-09] MEDS: NS 1000 ML 1,000 ML IV SCH ×4 (00:19→20:43)
[2019-05-09] MEDS: NUBAIN INJ 10 IVP PRN (04:19)
[2019-05-09 05:07] LABS: BASOPHILS # (AUTO) 0.1 X10^3/uL (0.0-0.1); BASOPHILS % (AUTO) 0.8 % (0.2-1.0); EOSINOPHILS # (AUTO) 0.1 x10^3/uL (0.0-0.2); EOSINOPHILS % (AUTO) 1.1 % (0.9-2.9); HEMATOCRIT 35.3 % (36.0-47.0); HEMOGLOBIN 11.8 g/dL (12.0-16.0); LYMPHOCYTES # (AUTO) 2.1 X10^3/uL (1.3-2.9); LYMPHOCYTES % (AUTO) 31.1 % (21.0-51.0); MEAN CORPUSCULAR HEMOGLOBIN 30.8 pg (27.0-34.0); MEAN CORPUSCULAR HGB CONC 33.5 g/dL (33.0-35.0); MEAN PLATELET VOLUME 10.3 fL (7.4-11.0); MONOCYTES # (AUTO) 0.6 x10^3/uL (0.3-0.8); MONOCYTES % (AUTO) 8.2 % (0.0-13.0); NEUTROPHILS % (AUTO) 58.8 % (42.0-75.0); PLATELET COUNT 182 X10^3/uL (150.0-450.0); RED BLOOD COUNT 3.84 X10^6/uL (3.5-5.4); RED CELL DISTRIBUTION WIDTH 13.5 % (11.6-16.5); WHITE BLOOD COUNT 6.7 X10^3/uL (3.6-10.0)
[2019-05-09 05:21] LABS: ALANINE AMINOTRANSFERASE 32 Units/L (12-78); ALBUMIN 3.1 g/dL (3.4-5.0); ALKALINE PHOSPHATASE 72 Units/L (46-116); AMYLASE 214 Units/L (25-115); ASPARTATE AMINO TRANSFERASE 28 Units/L (15-37); BLOOD UREA NITROGEN 25 mg/dL (7-18); CALCIUM 8.5 mg/dL (8.5-10.1); CHLORIDE 106 mmol/L (98-107); COR CA(FOR HYPOALB) 9.2 mg/dL (8.5-10.1); CREATININE 0.87 mg/dL (0.55-1.02); LIPASE 1305 Units/L (73-393); SODIUM 140 mmol/L (136-145); TOTAL PROTEIN 6.3 g/dL (6.4-8.2); eGFR NON BLACK RACES > 60 (>60)
[2019-05-09] MEDS ORDERED: MESTINON 60MG TAB PO SCH (07:00)
[2019-05-09] MEDS: ELIQUIS PO SCH ×2 (08:41→08:55)
[2019-05-09] MEDS: MACROBID CAP 100 MG EXT REL PO SCH (08:42)
[2019-05-09] MEDS: PROTONIX INJ 40 MG VIAL IVP SCH (11:35)
[2019-05-09] MEDS: FLAGYL IV PREMIX 500 MG BAG 500 MG/100 ML BAG IV SCH ×2 (11:35→20:41)
[2019-05-09] MEDS: PATIENT'S HOME MEDICATION PO SCH ×2 (12:45→16:54)
--- NOTE | 2019-05-09 16:05 | US ---
HISTORY: Pancreatitis Study: Ultrasound of the gallbladder Comparison: CT scan of the abdomen and pelvis done 05/07/2019. Technique: Grayscale, duplex and color Doppler ultrasound evaluation gallbladder region are provided. Findings: Gallbladder is well seen. No evidence of gallstone, gallbladder wall thickening or pericholecystic fluid is seen. Doppler flow directions within the portal vein and hepatic artery are normal. The adjacent liver is normal. A septated cyst is seen right kidney. The head and body of the pancreas are well seen and are normal. The pancreatic tail is not well seen marked atherosclerotic irregularity is seen involving marino abdominal aorta. IMPRESSION: Normal gallbladder. Atherosclerotic irregularity of the abdominal aorta without aneurysm formation. Septated cyst involving the right kidney. Addendum: Common bile duct measures 1.8 mm. Reported By:
[2019-05-09] MEDS: DEMEROL INJ IVP PRN (18:12)
[2019-05-09] MEDS: PYRIDOSTIGMINE BROMIDE 180 MG PO SCH (20:44)
[2019-05-10 02:42] LABS: CRYPTOSPORIDIUM PARVUM ANTIGEN NEGATIVE (NEGATIVE); GIARDIA LAMBLIA ANTIGEN NEGATIVE (NEGATIVE)
[2019-05-10] MEDS: FLAGYL IV PREMIX 500 MG BAG 500 MG/100 ML BAG IV SCH ×3 (03:02→18:02)
[2019-05-10] MEDS: DEMEROL INJ IVP PRN ×2 (03:43→09:55)
[2019-05-10] MEDS: NS 1000 ML 1,000 ML IV SCH ×3 (06:12→16:07)
[2019-05-10] MEDS: PATIENT'S HOME MEDICATION PO SCH ×3 (06:12→17:08)
[2019-05-10 06:29] LABS: BASOPHILS # (AUTO) 0.1 X10^3/uL (0.0-0.1); BASOPHILS % (AUTO) 0.9 % (0.2-1.0); EOSINOPHILS # (AUTO) 0.1 x10^3/uL (0.0-0.2); EOSINOPHILS % (AUTO) 1.5 % (0.9-2.9); HEMOGLOBIN 11.6 g/dL (12.0-16.0); LYMPHOCYTES # (AUTO) 1.8 X10^3/uL (1.3-2.9); LYMPHOCYTES % (AUTO) 29.4 % (21.0-51.0); MEAN CORPUSCULAR HEMOGLOBIN 31.1 pg (27.0-34.0); MEAN CORPUSCULAR HGB CONC 34.1 g/dL (33.0-35.0); MEAN CORPUSCULAR VOLUME 91.1 fL (80.0-100.0); MEAN PLATELET VOLUME 10.1 fL (7.4-11.0); MONOCYTES # (AUTO) 0.5 x10^3/uL (0.3-0.8); MONOCYTES % (AUTO) 8.4 % (0.0-13.0); NEUTROPHILS # (AUTO) 3.8 x10^3/uL (2.2-4.8); NEUTROPHILS % (AUTO) 59.8 % (42.0-75.0); PLATELET COUNT 172 X10^3/uL (150.0-450.0); RED BLOOD COUNT 3.74 X10^6/uL (3.5-5.4); RED CELL DISTRIBUTION WIDTH 13.3 % (11.6-16.5); WHITE BLOOD COUNT 6.3 X10^3/uL (3.6-10.0)
[2019-05-10 06:53] LABS: ALANINE AMINOTRANSFERASE 28 Units/L (12-78); ALKALINE PHOSPHATASE 69 Units/L (46-116); AMYLASE 122 Units/L (25-115); ASPARTATE AMINO TRANSFERASE 24 Units/L (15-37); BLOOD UREA NITROGEN 20 mg/dL (7-18); CALCIUM 8.3 mg/dL (8.5-10.1); CARBON DIOXIDE 25.9 mmol/L (21-32); CHLORIDE 106 mmol/L (98-107); COR CA(FOR HYPOALB) 9.1 mg/dL (8.5-10.1); CREATININE 0.82 mg/dL (0.55-1.02); LIPASE 584 Units/L (73-393); SODIUM 140 mmol/L (136-145); eGFR NON BLACK RACES > 60 (>60)
[2019-05-10] MEDS: LOVENOX INJ 40 MG SYR SC SCH (08:56)
[2019-05-10] MEDS: COLACE CAP 100 MG PO SCH ×2 (08:56→21:31)
[2019-05-10] MEDS: PROTONIX INJ 40 MG VIAL IVP SCH (08:56)
[2019-05-10] MEDS ORDERED: COLACE CAP 100 MG PO PRN (09:00)
[2019-05-10] MEDS ORDERED: DEMEROL INJ IVP PRN (10:01)
[2019-05-10] MEDS: FIORICET TAB PO PRN ×3 (11:22→21:34)
[2019-05-10] MEDS: PYRIDOSTIGMINE BROMIDE 180 MG PO SCH (21:32)
[2019-05-10] MEDS ORDERED: RESTORIL CAP 15 MG PO PRN (23:34)
[2019-05-11] MEDS: NS 1000 ML 1,000 ML IV SCH ×2 (00:15→02:01)
[2019-05-11] MEDS: FLAGYL IV PREMIX 500 MG BAG 500 MG/100 ML BAG IV SCH ×2 (02:20→11:48)
[2019-05-11] MEDS: FIORICET TAB PO PRN (03:27)
[2019-05-11] MEDS: PATIENT'S HOME MEDICATION PO SCH ×2 (05:36→11:48)
[2019-05-11 06:21] LABS: BASOPHILS # (AUTO) 0.1 X10^3/uL (0.0-0.1); BASOPHILS % (AUTO) 0.9 % (0.2-1.0); EOSINOPHILS # (AUTO) 0.1 x10^3/uL (0.0-0.2); EOSINOPHILS % (AUTO) 2.1 % (0.9-2.9); HEMATOCRIT 33.9 % (36.0-47.0); HEMOGLOBIN 11.5 g/dL (12.0-16.0); LYMPHOCYTES # (AUTO) 1.7 X10^3/uL (1.3-2.9); LYMPHOCYTES % (AUTO) 30.1 % (21.0-51.0); MEAN CORPUSCULAR HEMOGLOBIN 30.8 pg (27.0-34.0); MEAN CORPUSCULAR HGB CONC 33.8 g/dL (33.0-35.0); MEAN CORPUSCULAR VOLUME 91.1 fL (80.0-100.0); MEAN PLATELET VOLUME 10.5 fL (7.4-11.0); MONOCYTES # (AUTO) 0.4 x10^3/uL (0.3-0.8); MONOCYTES % (AUTO) 7.6 % (0.0-13.0); NEUTROPHILS # (AUTO) 3.5 x10^3/uL (2.2-4.8); NEUTROPHILS % (AUTO) 59.3 % (42.0-75.0); PLATELET COUNT 173 X10^3/uL (150.0-450.0); RED BLOOD COUNT 3.72 X10^6/uL (3.5-5.4); RED CELL DISTRIBUTION WIDTH 12.8 % (11.6-16.5); WHITE BLOOD COUNT 5.8 X10^3/uL (3.6-10.0)
[2019-05-11 06:45] LABS: ALANINE AMINOTRANSFERASE 24 Units/L (12-78); ALKALINE PHOSPHATASE 68 Units/L (46-116); AMYLASE 89 Units/L (25-115); ASPARTATE AMINO TRANSFERASE 27 Units/L (15-37); BLOOD UREA NITROGEN 15 mg/dL (7-18); CALCIUM 8.3 mg/dL (8.5-10.1); CARBON DIOXIDE 22.8 mmol/L (21-32); CHLORIDE 104 mmol/L (98-107); COR CA(FOR HYPOALB) 9.1 mg/dL (8.5-10.1); CREATININE 0.89 mg/dL (0.55-1.02); LIPASE 531 Units/L (73-393); SODIUM 138 mmol/L (136-145); TOTAL PROTEIN 5.9 g/dL (6.4-8.2); eGFR NON BLACK RACES > 60 (>60)
[2019-05-11 07:03] LABS: ERYTHROCYTE SEDIMENTATION RATE 10 MM/HOUR (0-20)
[2019-05-11] MEDS: PROTONIX INJ 40 MG VIAL IVP SCH (09:15)
[2019-05-11] MEDS: LOVENOX INJ 40 MG SYR SC SCH (09:15)
[2019-05-11] MEDS: COLACE CAP 100 MG PO SCH (09:15)
[2019-05-11] MEDS ORDERED: IMITREX TAB PO ONE (09:21)
[2019-05-11] MEDS ORDERED: IMITREX TAB PO PRN (09:22)
[2019-05-11 12:44] VITALS: BP 115/42
== END 2019-05-11 15:10 | disposition home or self-care (01) | DRG 439 ==
LOC: MED/SURG 12:10 → ER 12:10 → MED/SURG 18:08
PROVIDERS: ADMIT Obstetrics & Gynecology Obstetrics; ATTEND Internal Medicine
DX: E78.5 Hyperlipidemia, unspecified; Z86.718 Personal history of other venous thrombosis and embolism; N39.0 Urinary tract infection, site not specified; R41.82 Altered mental status, unspecified; R10.9 Unspecified abdominal pain; K85.90 Acute pancreatitis without necrosis or infection, unspecified; G70.00 Myasthenia gravis without (acute) exacerbation; K59.00 Constipation, unspecified; K21.9 Gastro-esophageal reflux disease without esophagitis; K52.9 Noninfective gastroenteritis and colitis, unspecified; M19.90 Unspecified osteoarthritis, unspecified site
CPT/HCPCS: 36415; 70450; 74176; 76705; 80053; 81001; 82150; 82270; 82550; 82553; 83630; 83690; 84484; 85025; 85652; 86140; 87045; 87086; 87328; 87329; 87427; 87449; 87493; 87899; 96365; 96374; 99284; A4216; A4222; C9113; S0030; G0378; J1650; J2175; J2300; J7030